=== PATIENT | male | born 1955 | race Caucasian/White ===

== ENCOUNTER → 2017-03-03 | Outpatient (CLI) | payer MEDICARE ==
[~2017-03-03] MED LIST: ASPIR 8181 MG PO; CIALIS20 MG PO; CLARITIN10 M2 PO; COREG 3.125M3.125 MG PO; FLOMAX 0.4 MG0.4 MG PO; IBUPROFEN800 MG PO; LIPITOR TAB 2020 MG PO; LISINOPRIL20 MG PO; MULTIPLE VITAM1 EACH PO; NEURONTIN 300300 MG PO; NORCO 10-325 T1 EACH PO; NORVASC 5 MG TAB5 MG PO; PERCOCET 10-321 EACH PO; PROTONIX 40 MG40 M1 PO; ROBAXIN 750 MG750 MG PO; SINGULAIR10 MG PO; ULTRAM50 MG PO; VENTOLIN/PROVE0.5 ML INH; VITAMIN B12-FO1 EACH SC; VOLTAREN EC 2525 MG PO
== END ==
LOC: KOH-I 13:30
DX: M54.5 Low back pain (principal); M47.816 Spondylosis without myelopathy or radiculopathy, lumbar region; M99.53 Intervertebral disc stenosis of neural canal of lumbar region
CPT/HCPCS: 72131

== ENCOUNTER → 2017-03-09 | Outpatient (CLI) | payer MEDICARE ==
[2017-03-09 10:04] LABS: HEMOGLOBIN 14.6 gm/dl (14.0-17.5); RED BLOOD COUNT 4.66 M/UL (4.20-5.50); WHITE BLOOD COUNT 10.7 K/UL (4.5-11.0)
[2017-03-09 10:19] LABS: BUN/CREATININE RATIO 26 (0-10)
== END ==
LOC: OPSV2 09:00
PROVIDERS: Orthopaedic Surgery
DX: Z01.812 Encounter for preprocedural laboratory examination (principal); Z01.810 Encounter for preprocedural cardiovascular examination; M25.722 Osteophyte, left elbow
CPT/HCPCS: 36415; 80048; 85025; 93005

== ENCOUNTER → 2017-03-15 | Day surgery (SDC) | payer MEDICARE ==
[~2017-03-15] VITALS: Ht 185.4 cm; Wt 94.8 kg
== END | disposition home or self-care (01) ==
LOC: OR 06:04
PROVIDERS: Orthopaedic Surgery
PROC: 0LM40ZZ Reattachment of Left Upper Arm Tendon, Open Approach (ICD-10-PCS; 2017-03-15)
PROC: 0PBL0ZZ Excision of Left Ulna, Open Approach (ICD-10-PCS; principal; 2017-03-15 07:45)
DX: M25.722 Osteophyte, left elbow (principal); M65.222 Calcific tendinitis, left upper arm; G89.29 Other chronic pain; I10 Essential (primary) hypertension; J44.9 Chronic obstructive pulmonary disease, unspecified; K21.9 Gastro-esophageal reflux disease without esophagitis; M19.90 Unspecified osteoarthritis, unspecified site; M06.9 Rheumatoid arthritis, unspecified; F17.210 Nicotine dependence, cigarettes, uncomplicated; Z83.3 Family history of diabetes mellitus; Z79.1 Long term (current) use of non-steroidal anti-inflammatories (NSAID); Z79.2 Long term (current) use of antibiotics; Z79.82 Long term (current) use of aspirin; Z79.891 Long term (current) use of opiate analgesic; Z79.899 Other long term (current) drug therapy; Z98.890 Other specified postprocedural states
CPT/HCPCS: 73070; 76000; J1885; J2250; J2710; J3010; J7030; J7120

== ENCOUNTER → 2017-04-03 | Outpatient (CLI) | payer MEDICARE | LOC: US 13:05 | DX: I65.23 Occlusion and stenosis of bilateral carotid arteries (principal) | CPT/HCPCS: 93880 ==

== ENCOUNTER → 2022-02-17 | Outpatient (CLI) | payer MEDICARE, OTHER ==
[~2022-02-17] MED LIST changes: +MEDROL4 MG PO
== END ==
LOC: HEART 5 14:30
DX: R00.2 Palpitations (principal)

== ENCOUNTER → 2022-03-09 | Outpatient (CLI) | payer MEDICARE | LOC: HEART 5 07:57 | DX: I11.9 Hypertensive heart disease without heart failure (principal); I25.10 Atherosclerotic heart disease of native coronary artery without angina pectoris; I08.3 Combined rheumatic disorders of mitral, aortic and tricuspid valves; I27.20 Pulmonary hypertension, unspecified | CPT/HCPCS: 93306 ==